=== PATIENT | male | born 1955 | race Caucasian/White ===

== ENCOUNTER 2017-10-08 21:48 | Emergency (ER) | payer OTHER ==
[~2017-10-08] VITALS: Ht 193 cm; Wt 127.0 kg
--- NOTE | 2017-10-08 22:30 | ED UPPER/LOWER EXTREMITY COMPL ---
History of Present Illness General Chief Complaint: Foot or Ankle Injury Stated Complaint: R FOOT SWELLING X 2DAYS Source: patient, family Exam Limitations: no limitations Vital Signs & Intake/Output Vital Signs & Intake/Output Vital Signs Date Time Temp Pulse Resp B/P B/P Pulse O2 O2 Flow FiO2 Mean Ox Delivery Rate 10/08 2353 98.3 85 18 164/63 99 Room Air 10/08 2248 Room Air 10/08 2151 96.7 88 18 176/72 95 Room Air ED Intake and Output 10/09 0000 10/08 1200 Intake Total Output Total Balance Patient 280 lb Weight Weight Reported by Patient Measurement Method Allergies Uncoded Allergies: Allergy Other N Med Allergies N Reconcile Medications Amoxicillin 875 MG TABLET 1 TAB PO BID CELLULITIS Meloxicam (Mobic) 15 MG TABLET 1 TAB PO DAILY PRN PAIN Sulfamethoxazole/Trimethoprim (Bactrim Ds Tablet) 800 MG-160 MG TABLET 1 TAB PO BID CELLULITIS Triage Note: PT FROM HOME C/O RT FOOT SWOLLEN/RED INSECT BITE? PER PT ON TUESDAY PT AWOKE WITH A RIGHT ANKLE/ FOOT SWELLING/ REDNESS. PT STATED HE WOULD GIVE IT A FEW DAYS TO HEAL. PT DENIES BEING OUTSIDE OR BEING BAREFOOT ANYWHERE. PTS STATES POSSIBLE INSECT BITE?? PTS RT GREAT TOE SWOLLEN, RED, AND WARM TO TOUCH. PT STATES HARD TO AMBULATE TODAY. VSS, AFEBRILE IN TRIAGE. Triage Nurses Notes Reviewed? yes Onset: Gradual Duration: day(s): Timing: recent history Severity: moderate Pain/Injury Location: Right: Foot. HPI: 62yo male with hx of HTN presents to ED complaining of pain and redness to right foot beginning yesterday morning. Patient reports redness, swelling, increasing pain since onset yesterday morning. Patient has no history of similar skin problems. Patient had no trauma or injury prior to onset of rash. Patient reports pain is worse with walking, and were specifically at great toe. Patient denies fevers, chills, malaise, abdominal pain, nausea, vomiting. Past History Travel History Traveled to [place] past 21 day No Medical History Any Pertinent Medical History? see below for history Cardiovascular: hypertension Surgical History Surgical History: non-contributory Psychosocial History What is your primary language Khmer Tobacco Use: Quit >30 days ago Family History Hx Contributory? No Review of Systems Review of Systems Constitutional: Reports: no symptoms. EENTM: Reports: no symptoms. Respiratory: Reports: no symptoms. Cardiovascular: Reports: no symptoms. Gastrointestinal/Abdominal: Reports: no symptoms. Genitourinary: Reports: no symptoms. Musculoskeletal: Reports: see HPI. Skin: Reports: see HPI. Neurological/Psychological: Reports: no symptoms. Hematologic/Endocrine: Reports: no symptoms. Immunological: Reports: no symptoms. All Other Systems: Reviewed and Negative Physical Exam Physical Exam General Appearance: well developed/nourished, no apparent distress, alert, awake Head: atraumatic, normal appearance Eyes: Bilateral: normal appearance. Ears, Nose, Throat: hearing grossly normal Neck: normal inspection, supple, full range of motion Cardiovascular/Respiratory: normal breath sounds, regular rate/rhythm, no respiratory distress Peripheral Pulses: 2+ dorsalis pedis (R) Gastrointestinal: bowel sounds present, nontender Back: normal inspection, normal range of motion Leg Left: normal range of motion, normal inspection Leg Right: normal range of motion, normal inspection Hip Left: normal range of motion, normal inspection Hip Right: normal range of motion, normal inspection Knee Left: normal range of motion, normal inspection Knee Right: normal range of motion, normal inspection Foot Left: normal inspection, normal range of motion Foot Right: erythema to distal right foot with moderate swelling and tenderness involving entire foot point tenderness over 1st MTP joint tenderness and erythema does not extend to lower leg at this time Neurologic/Tendon: normal sensation, normal motor functions, normal tendon functions Skin: see R foot erythema as described above Progress Differential Diagnosis: cellulitis, fracture, gout, septic arthritis, sprain, osteomyelitis Plan of Care: Orders Procedure Date/time Status LACTIC ACID 10/08 2238 Complete COMPREHENSIVE METABOLIC PANEL 10/08 2238 Complete CBC WITHOUT DIFFERENTIAL 10/08 2238 Complete Laboratory Tests 10/09/17 0139: Lactic Acid Cancelled 10/08/17 2245: Anion Gap 12, Estimated GFR > 60, BUN/Creatinine Ratio 22.0, Glucose 130 H, Lactic Acid 1.6, Calcium 10.0, Total Bilirubin 0.6, AST 18, ALT 36, Alkaline Phosphatase 88, Total Protein 7.0, Albumin 4.4, Globulin 2.6, Albumin/Globulin Ratio 1.7, CBC w Diff NO MAN DIFF REQ, RBC 5.08, MCV 85.5, MCH 29.5, MCHC 34.5, RDW 13.0, MPV 8.3, Gran % 67.8, Lymphocytes % 19.6 L, Monocytes % 9.1, Eosinophils % 3.1, Basophils % 0.4, Absolute Granulocytes 8.9 H, Absolute Lymphocytes 2.6, Absolute Monocytes 1.2 H, Absolute Eosinophils 0.4, Absolute Basophils 0.1 X-ray without acute abnormality. Patient's symptoms began yesterday and is currently afebrile, low suspicion for osteomyelitis at this time. Patient's rash appears consistent with cellulitis. Patient started on antibiotics and anti-inflammatory medication. He was instructed to return in 2 days for reevaluation of skin infection. He will return sooner with worsening symptoms or other concerns. Patient given strict return precautions for fever, rash spreading up the leg, severe pain. The patient is nontoxic appearing, vital signs are stable. Labs show mild leukocytosis, otherwise within normal limits. The patient agrees with the plan of care. The patient was discussed with Dr. Granados who agrees with this plan. Diagnostic Imaging: Viewed by Me: Radiology Read. Discussed w/RAD: Radiology Read. Radiology Impression: PATIENT: ALTHEA ARNDT PRESENT AGE: 62 PATIENT ACCOUNT NO: [id number] : 57 LOCATION: [facility] ORDERING PHYSICIAN: Sarah GUERRA SERVICE DATE: 10/08/17 EXAM TYPE: RAD - XRY-FOOT COMPLETE, R EXAMINATION: XR FOOT, RIGHT CLINICAL INFORMATION: Cellulitis, evaluation for osteomyelitis COMPARISON: None TECHNIQUE : AP, lateral, and oblique views of the right foot. FINDINGS: There is no acute fracture or dislocation. There is soft tissue swelling of the forefoot, predominantly in the region of the first MTP joint. No periosteal reaction is seen. Sesamoid bones are present. No soft tissue air. IMPRESSION: Soft tissue swelling of the forefoot without associated lytic bony lesion or periosteal reaction can correlate with clinical diagnosis of cellulitis. If there is high clinical concern for acute osteomyelitis, MRI or bone scan are more sensitive for changes of acute osteomyelitis. 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 < Electronically signed in Other Vendor System> SIGNED BY: Vinod Renteria MDh 10/08/17 6133 Departure Departure Disposition: HOME OR SELF CARE Condition: Stable Clinical Impression Primary Impression: Cellulitis of foot Referrals: Armani ARMAS,Selvin Dunbar (PCP/Family) Additional Instructions: Begin antibiotics tonight as discussed. Monitor for worsening symptoms such as spreading rash, fevers, abdominal pain, vomiting. Return with any of these symptoms. Otherwise return in 2 days for wound check or see primary care doctor in 2 days. Take pictures of red area daily to you can monitor progress. Please note that there might be incidental findings in your evaluation that are unrelated to the current emergency department visit. Please notify your primary care doctor about this emergency department visit in order to obtain and review all of the testing performed so that these incidental findings can be monitored as needed. If you had an x-ray performed, please understand that some fractures may not be seen on the initial set of x-rays. If your symptoms persist you might need a repeat set of x-rays to check for such a fracture. If you had a laceration evaluated, please understand that foreign bodies such as glass or wood may not be visible to the naked eye or on plain x-rays. If the wound becomes red, swollen, increasingly more painful or if there is any drainage from the wound, please have it reevaluated by a physician for the possibility of a retained foreign body. If you're unable to follow up as outlined in the discharge instructions please return to the emergency department. Thank you for choosing the [facility] Emergency Department for your care. It was a pleasure to serve you today. Departure Forms: Customer Survey General Discharge Information Prescriptions: Current Visit Scripts Amoxicillin 1 TAB PO BID #20 TAB Sulfamethoxazole/Trimethoprim (Bactrim Ds Tablet) 1 TAB PO BID #20 TAB Meloxicam (Mobic) 1 TAB PO DAILY PRN PAIN #15 TAB
[2017-10-08 22:55] LABS: ABSOLUTE BASOPHIL COUNT 0.1 /CUMM (0.0-0.2); ABSOLUTE EOSINOPHIL COUNT 0.4 /CUMM (0.0-0.7); ABSOLUTE GRANULOCYTE CT 8.9 /CUMM (1.4-6.5); ABSOLUTE LYMPH COUNT 2.6 /CUMM (1.2-3.4); ABSOLUTE MONOCYTE COUNT 1.2 /CUMM (0.10-0.60); BASOPHIL % 0.4 % (0.0-2.0); EOSINOPHIL % 3.1 % (0-5); GRANULOCYTE % 67.8 % (42.2-75.2); HEMATOCRIT 43.5 % (42-52); MEAN CORPUSCULAR HGB 29.5 PG (27.0-31.0); MEAN CORPUSCULAR HGB CONC 34.5 G/DL (33.0-37.0); MEAN CORPUSCULAR VOLUME 85.5 FL (80.0-94.0); MEAN PLATELET VOLUME 8.3 FL (7.4-10.4); PLATELET COUNT 258 /CUMM (130-400); RED BLOOD CELL CT 5.08 /CUMM (4.70-6.10); WHITE BLOOD CELL COUNT 13.1 /CUMM (4.8-10.8)
--- NOTE | 2017-10-08 23:05 | RADIOLOGY REPORT ---
EXAMINATION: XR FOOT, RIGHT CLINICAL INFORMATION: Cellulitis, evaluation for osteomyelitis COMPARISON: None TECHNIQUE: AP, lateral, and oblique views of the right foot. FINDINGS: There is no acute fracture or dislocation. There is soft tissue swelling of the forefoot, predominantly in the region of the first MTP joint. No periosteal reaction is seen. Sesamoid bones are present. No soft tissue air. IMPRESSION: Soft tissue swelling of the forefoot without associated lytic bony lesion or periosteal reaction can correlate with clinical diagnosis of cellulitis. If there is high clinical concern for acute osteomyelitis, MRI or bone scan are more sensitive for changes of acute osteomyelitis.
[2017-10-08] MEDS ORDERED: AMOXICILLIN875 M1 PO (23:51)
[2017-10-08] MEDS ORDERED: BACTRIM DS TAB1 EACH PO (23:51)
[2017-10-08] MEDS ORDERED: MOBIC15 M1 PO (23:51)
[2017-10-08 23:53] VITALS: BP 164/63
== END 2017-10-08 23:54 ==
LOC: ERH 21:48
PROVIDERS: Physician Assistant
DX: L03.115 Cellulitis of right lower limb (principal)
CPT/HCPCS: 73630-RT